=== PATIENT | male | born 1950 | race Caucasian/White ===

== ENCOUNTER 2019-04-10 14:25 | Emergency (ER) | payer BC, MEDICAID ==
[~2019-04-10] VITALS: Ht 167.6 cm; Wt 129.3 kg
[2019-04-10 14:25] VITALS: BP_SYST 138
--- NOTE | 2019-04-10 14:25 | NUR ---
BROUGHT BACK TO BED #4 AND TRIAGED, REPORT GIVEN TO VEE
--- NOTE | 2019-04-10 14:35 | NUR ---
Patient presents to ER C/O bilat knee pain. Patient A&Ox4, ambulatory, afebrile,skin pink and warm, cap refill <3, pain 0/10, pain 10/10while ambulating to ER, denies N/V/D. Patient states he had bilat arthritis pain, worse on left knee. Patient states he recently moved to [facility] from [facility] and change PMD. Patient states he has hx of bilat knee arthritis with steroid injection tx. Patient requestin Steroid Injection tx.
[2019-04-10] MEDS ORDERED: TRIAMCINOLONE ACETONIDE 40 MG/ML IA ONE (15:15)
--- NOTE | 2019-04-10 15:15 | NUR ---
ER Dr. Farnsworth at bedside examining patient.
--- NOTE | 2019-04-10 16:31 | NUR ---
Patient given written and verbal discharge instructions and verbalizes understanding. ER MD Farnsworth discussed with patient the results and treatment provided. Patient in stable condition. ID arm band removed. No Rx given. Patient educated on pain management and to follow up with PMD. Pain Scale 0. Opportunity for questions provided and answered. Medication side effect fact sheet provided.
[2019-04-10 16:32] VITALS: BP_SYST 124
== END 2019-04-10 16:31 | disposition home or self-care (01) ==
LOC: SED 14:25
DX: M19.90 Unspecified osteoarthritis, unspecified site (principal); E78.5 Hyperlipidemia, unspecified; I10 Essential (primary) hypertension
CPT/HCPCS: 20610; 99284; J3301

== ENCOUNTER 2020-08-21 15:53 | Emergency (ER) | payer BC, MEDICAID ==
[~2020-08-21] VITALS: Ht 170.2 cm; Wt 123.4 kg
[2020-08-21 16:05] VITALS: BP_SYST 188
[2020-08-21 16:57] LABS: BASOPHILS # (AUTO) 0.1 K/uL (0.0-0.2); BASOPHILS % (AUTO) 0.5 % (0.0-2.0); EOSINOPHILS # (AUTO) 0.5 K/uL (0.0-0.4); EOSINOPHILS % (AUTO) 4.6 % (0.0-4.0); HEMATOCRIT 36.8 % (36-54); HEMOGLOBIN 12.7 g/dL (14.0-18.0); LYMPHOCYTES # (AUTO) 2.4 K/uL (1.0-5.5); LYMPHOCYTES % (AUTO) 21.9 % (20.5-51.5); MEAN CORPUSCULAR HEMOGLOBIN 32 pg (27-31); MEAN CORPUSCULAR HGB CONC 35 % (32-36); MEAN CORPUSCULAR VOLUME 92 fL (79.0-98.0); MONOCYTES # (AUTO) 0.7 K/uL (0.0-1.0); MONOCYTES % (AUTO) 6.9 % (1.7-9.3); NEUTROPHILS # (AUTO) 7.1 K/uL (1.8-7.7); NEUTROPHILS % (AUTO) 66.1 % (40.0-70.0); PLATELET COUNT (AUTO) 211 K/uL (130-430); RED BLOOD CELL COUNT(AUTO) 4.02 MIL/uL (4.2-6.2); RED CELL DISTRIBUTION WIDTH 13.9 % (9.0-15.0); WHITE BLOOD COUNT (AUTO) 10.8 K/uL (4.8-10.8)
[2020-08-21 17:10] LABS: CALCIUM 8.7 mg/dL (8.4-11.0); CREATININE 1.15 mg/dL (0.55-1.30); POTASSIUM 4.2 mmol/L (3.5-5.1)
[2020-08-21 17:15] LABS: BILIRUBIN,URINE NEGATIVE (NEGATIVE); BLOOD, URINE NEGATIVE (NEGATIVE); CLARITY/URINE CLEAR (CLEAR); COLOR,URINE YELLOW (YELLOW); GLUCOSE,URINE NEGATIVE (NEGATIVE); KETONES,URINE NEGATIVE (NEGATIVE); LEUKOCYTE ESTERASE ,URINE NEGATIVE (NEGATIVE); NITRITE, URINE NEGATIVE (NEGATIVE); PROTEIN URINE NEGATIVE (NEGATIVE); UROBILINOGEN,URINE 0.2 (0.2-1.0)
[2020-08-21 17:16] LABS: ALBUMIN 3.2 g/dL (3.4-4.8); TOTAL BILIRUBIN 0.4 mg/dL (0.0-1.0)
[2020-08-21 17:30] VITALS: BP_SYST 154
== END 2020-08-21 17:30 | disposition home or self-care (01) ==
LOC: SED 15:53
DX: R53.1 Weakness (principal); R06.00 Dyspnea, unspecified; I10 Essential (primary) hypertension; E11.9 Type 2 diabetes mellitus without complications; E78.5 Hyperlipidemia, unspecified
CPT/HCPCS: 36415; 71045; 80053; 81003; 82550; 83880; 84484; 85025; 93005; 99285

== ENCOUNTER 2021-10-23 17:53 | Emergency (ER) | payer BC ==
[~2021-10-23] VITALS: Ht 170.2 cm; Wt 115.7 kg
[2021-10-23 18:02] VITALS: BP_SYST 154
--- NOTE | 2021-10-23 18:05 | NUR ---
ERMD AT BEDSIDE
--- NOTE | 2021-10-23 18:05 | NUR ---
PLACED ON MONITOR, B/P, PULSE OX, IV 20G LEFT AC
--- NOTE | 2021-10-23 18:10 | NUR ---
PT STATED UNBLE TO VOID AT THIS TIME
[2021-10-23 18:38] LABS: BASOPHILS # (AUTO) 0.1 K/uL (0.0-0.2); BASOPHILS % (AUTO) 0.6 % (0.0-2.0); EOSINOPHILS # (AUTO) 0.5 K/uL (0.0-0.4); EOSINOPHILS % (AUTO) 4.6 % (0.0-4.0); HEMATOCRIT 39.5 % (36-54); HEMOGLOBIN 13.5 g/dL (14.0-18.0); LYMPHOCYTES # (AUTO) 2.7 K/uL (1.0-5.5); LYMPHOCYTES % (AUTO) 24.6 % (20.5-51.5); MEAN CORPUSCULAR HEMOGLOBIN 31 pg (27-31); MEAN CORPUSCULAR HGB CONC 34 % (32-36); MEAN CORPUSCULAR VOLUME 90 fL (79.0-98.0); MONOCYTES # (AUTO) 0.7 K/uL (0.0-1.0); MONOCYTES % (AUTO) 6.4 % (1.7-9.3); NEUTROPHILS % (AUTO) 63.8 % (40.0-70.0); PLATELET COUNT (AUTO) 219 K/uL (130-430); RED BLOOD CELL COUNT(AUTO) 4.37 MIL/uL (4.2-6.2); RED CELL DISTRIBUTION WIDTH 14.1 % (9.0-15.0); WHITE BLOOD COUNT (AUTO) 10.9 K/uL (4.8-10.8)
[2021-10-23 19:05] LABS: ANION GAP 9 (5-15); CALCIUM 7.6 mg/dL (8.4-11.0); CHLORIDE 100 mmol/L (98-107); CREATININE 0.98 mg/dL (0.55-1.30); GLUCOSE 151 mg/dL (70-99); SODIUM SERUM 135 mmol/L (136-145); UREA NITROGEN, BLOOD 17 mg/dL (8-21)
[2021-10-23 19:06] LABS: GFR AFRICAN AMERICAN 98 mL/min (>90)
[2021-10-23 19:08] LABS: BILIRUBIN,URINE NEGATIVE (NEGATIVE); BLOOD, URINE NEGATIVE (NEGATIVE); CLARITY/URINE CLEAR (CLEAR); COLOR,URINE YELLOW (YELLOW); GLUCOSE,URINE NEGATIVE (NEGATIVE); KETONES,URINE NEGATIVE (NEGATIVE); LEUKOCYTE ESTERASE ,URINE NEGATIVE (NEGATIVE); NITRITE, URINE NEGATIVE (NEGATIVE); PH,URINE 5.5 (5.0-8.0); PROTEIN URINE NEGATIVE (NEGATIVE); UROBILINOGEN,URINE 0.2 (0.2-1.0)
[2021-10-23 19:26] LABS: ALANINE AMINOTRANSFERASE 19 U/L (12-78); ALBUMIN 3.4 g/dL (3.4-4.8); ASPARTATE AMINOTRANSFERASE 15 U/L (10-37); TOTAL BILIRUBIN 0.4 mg/dL (0.0-1.0)
[2021-10-23 19:49] LABS: ACETONE, SERUM NEGATIVE (NEGATIVE)
--- NOTE | 2021-10-23 22:24 | NUR ---
Patient given written and verbal discharge instructions and verbalizes understanding. ER MD Devlin discussed with patient the results and treatment provided. Patient in stable condition. ID arm band removed. IV catheter removed intact and dressing applied, no active bleeding. Patient educated on pain management and to follow up with PMD. Pain Scale 0/10. Opportunity for questions provided and answered. Medication side effect fact sheet provided.
[2021-10-24 06:23] VITALS: BP_SYST 149
== END 2021-10-23 22:25 | disposition home or self-care (01) ==
LOC: SED 17:53
DX: R53.1 Weakness (principal); E78.5 Hyperlipidemia, unspecified; E11.9 Type 2 diabetes mellitus without complications; I10 Essential (primary) hypertension; Z79.899 Other long term (current) drug therapy
CPT/HCPCS: 36415; 71045; 80053; 81003; 82009; 82550; 83605; 85025; 93005; 99285